=== PATIENT | male | born 1960 | race Caucasian/White ===

== ENCOUNTER 2025-07-07 07:15 | Emergency (ER) | payer OTHER, SELFPAY ==
--- OUTSIDE RECORDS SUMMARY | 2025-06-23 10:45 | XMS_ITS | Encounter Summary ---
Author Organization [facility] Address [address] [place] [address] Phone Care Team Providers Care Metal Grinder Name Role Phone Sonny Chiang DO Primary Care Provider Reason for Referral * Cardiovascular (Routine) - AuthorizedSpecialtyDiagnoses / ProceduresReferred By ContactReferred To Contact Diagnoses Bradycardia, unspecified Procedures ECG 12 Lead Ivan Martin MD [address] [facility] 2, [address] [address] Phone: tel: fax: Referral IDStatusReasonStart DateExpiration DateVisits RequestedVisits [id number]/24/202511/24/202611 Reason for Visit * ReasonCommentsekg visit * Cardiovascular (Routine) - AuthorizedSpecialtyDiagnoses / ProceduresReferred By ContactReferred To Contact Diagnoses Persistent atrial fibrillation (Multi) Procedures ECG 12 Lead Ivan Martin MD [address] [facility] 2, [address] [address] Phone: tel: fax: Referral IDStatusReasonStart DateExpiration DateVisits RequestedVisits [id number]/16/202510/16/202611 Encounter Details DateTypeDepartmentCare Team (Latest Contact Info)Smpemxvhjpe47/18/2025 10:45 AM ESTAncillary Procedure [facility] [address] [place] [address] Liz Abdi LPN Persistent atrial fibrillation (Multi); Bradycardia, unspecified Social History Tobacco UseTypesPacks/DayYears UsedDateSmoking Tobacco: FormerCigarettes1.517 Started: 1980Smokeless Tobacco: NeverAlcohol UseStandard Drinks/WeekCommentsYes0 (1 standard drink = 0.6 oz pure alcohol)occasionallySex and Gender Information ValueDate RecordedSex Assigned at BirthNot on fileLegal MxyCwoo88/25/2022 4:09 PM ESTGender IdentityNot on fileSexual OrientationNot on filedocumented as of this encounter Last Filed Vital Signs Vital SignReadingTime TakenCommentsBlood Aohfozhv417/8606/23/2025 10:52 AM EST Vxgtn435806/23/2025 10:52 AM ESTTemperature--Respiratory Rate--Oxygen Saturation-- Inhaled Oxygen Concentration--Pvfmni021 kg (285 lb)06/23/2025 10:52 AM ESTHeight 182.9 cm (6')06/23/2025 10:52 AM ESTBody Mass Index38.6506/23/2025 10:52 AM EST documented in this encounter Functional Status * BPAnswerDate of MqziwscgbeGlduzk257/8606/23/2025 10:52 AM Liz Douglas LPN * PulseAnswerDate of OgvtcnavpeYnpmlr5243/18/2025 10:52 AM Liz Douglas LPN documented as [...] 6 days ago Ivan Martin MD [place] [address] Card1 Clinical Mexican Food Cook Patient remained bradycardic. Discontinue sotalol. Repeat EKG [...] Plan of Treatment DateTypeDepartmentCare Team (Latest Contact Info)Hbxoiocuidr94/08/2025 2:00 PM ESTAncillary Procedure [facility] 703 [facility] 250 [place] [phone] 12/03/2025 10:40 AM EDTOJosh[place] [address] [facility] [address] [place] [address] Ivan Martin MD 703 [facility] 2, [address] [place] [address] NameTypePriorityAssociated DiagnosesOrder ScheduleECG 12 LeadECGRoutine [...] Date Sonny Chiang DO [address] [facility] [address] [place] [address] PCP - General10/03/21documented as of this encounter
[2025-07-07] VITALS (12 sets, daily range): BP systolic 136–186; BP diastolic 86–102; PULSE 66–85; TEMP 36.6; O2SAT 93–99; BMI 38.0
--- NOTE | 2025-07-07 07:32 | XR_ITS ---
[place] [id number] Patient Name: LUCIA ARREOLA MRN: [id number] date: 1960 Sex: M Assigned Patient Location: ER Current Patient Location: ED.MAIN Accession/Order Number: [id number] Exam Date: 07/07/2025 07:38 Report Date: 07/07/2025 08:18 At the request of: SANJAY WILLIS MD Procedure: XR chest 1V PORTABLE AP ERECT CHEST 0734 hours CLINICAL HISTORY: Hypertension and heart palpitations COMPARISON: 06/14/2022 There is continued slight elevation of the right hemidiaphragm. The heart is within normal limits. There is no vascular congestion. The lungs, as visualized, are clear. There is no effusion or pneumothorax. The osseous structures are intact. Endplate spurring is noted. XR/XR chest 1V IMPRESSION: NO ACUTE FINDINGS Impression dictated by: Lin Murcia M.D. 07/07/2025 8:18 AM Dictation Location: [place] [address] Electronically authenticated by: [id number] Y Date: 07/07/2025 08:18
--- NOTE | 2025-07-07 07:32 | ECG_ITS ---
[facility] Test Date: 2025-07-07 Pat Name: LUCIA ARREOLA Department: Room: - Gender: Male Executive Services Administrator: : 1960 Requested By: Order Number: [id number] Reading MD: VIVIAN HOPKINS Measurements Intervals Dilliner Rate: 77 P: 52 WV: 182 QRS: 40 QRSD: 96 T: 45 QT: 380 QTc: 412 Interpretive Statements 1100 Sinus rhythm 2440 Incomplete right bundle branch block 9130 borderline ECG Compared to ECG 07/11/2022 07:53:33 Incomplete right bundle-branch block now present Electronically Signed On 07-07-2025 12:50:38 EST by VIVIAN HOPKINS
--- NOTE | 2025-07-07 07:33 | ED_ITS ---
HPI HPI - General Adult General Chief complaint: Recheck/Abnormal Lab/Rx Stated complaint: HEART PALPITATIONS Time Seen by Provider: 07/07/25 07:25 Source: patient Mode of arrival: walk-in Limitations: no limitations History of Present Illness HPI narrative: 65-year-old male presented for high blood pressure. He was seen by his gauge controller 8 days ago and was taken off of sotalol because his heart rate was low. He states his blood pressure has gone up. He does not have a headache or chest pain, he has been checking it at home. No shortness of breath or complaints of palpitations. He reports a history of A-fib but has not been in atrial fibrillation since he was placed on Cardizem and sotalol. Related Data Home Medications ?Medication ?Instructions ?Recorded ?Confirmed aspirin 81 mg chewable tablet 1 tab PO DAILY 07/07/25 07/07/25 diltiazem HCl 120 mg 120 mg PO Q24H 07/07/2509/30 capsule,extended release 24 hr hydrochlorothiazide 25 mg tablet 25 mg PO DAILY 07/07/25 Allergies Allergy/AdvReac Type Severity Reaction Status Date / Time lisinopril Allergy Severe tongue Verified 07/07/25 07:21 swelling cephalexin (From Keflex) Allergy Intermediate edema Verified 07/07/25 07:21 Penicillins Allergy Intermediate unknown Verified 07/07/25 07:21 Review of Systems ROS Narrative A ten point review of systems is negative except as noted above. PFSH PFSH Social History Little interest or pleasure in doing things: not at all Feeling down, depressed, or hopeless: not at all Exam Narrative Exam Narrative: Nurses note and vital signs reviewed General:The patient appears well and in no apparent distress.Patient is resting comfortably on cart. Skin:Warm, dry, no pallor noted.There is no rash noted. Head:Normocephalic, atraumatic Eye: Normal conjunctiva, no drainage Ears, Nose, Mouth, and Throat: oral mucosa is moist. Nares patent. Cardiovascular:Regular Rate and Rhythm Respiratory:Patient is in no distress, no accessory muscle use, lungs are clear to auscultation, no wheezing, rales or rhonchi Back:non-tender GI: Soft and nontender Musculoskeletal: The patient has no evidence of calf tenderness Neurological:A&O, normal speech Psychiatric:Cooperative Constitutional Vital Signs, click to edit/add: Last Vital Signs Temp 97.9 F 07/07/25 07:22 Pulse 66 07/07/25 08:20 Resp 13 07/07/25 08:20 BP 149/88 H 07/07/25 08:15 Pulse Ox 95 07/07/25 08:20 O2 Del Method Room Air 07/07/25 07:22 Course Vital Signs Vital signs: Vital Signs Pulse Rate 70 07/07/25 07:21 Respiratory Rate 12 07/07/25 07:21 Temperature 97.9 F 07/07/25 07:22 Pulse Rate 66 07/07/25 08:20 Respiratory Rate 13 07/07/25 08:20 Blood Pressure 149/88 H 07/07/25 08:15 Pulse Oximetry 95 07/07/25 08:20 Oxygen Delivery Method Room Air 07/07/25 07:22 Medical Decision Making MDM Narrative Medical decision making narrative: The patient presented with an elevated blood pressure but it has come down steadily without any intervention. His workup is negative as well and he is discharged home. He will close cardiac just office when they are open. Treatment diagnosis and follow-up were discussed with the patient and his . Differential Diagnosis Differential Diagnosis: Hypertension, kidney failure Lab Data Lab results reviewed: Yes I reviewed the patient's lab results Labs: Lab Results 07/07/25 Range/Units 07:34 WBC 5.8 (4.0-11.0) 10^3/uL RBC 5.56 (4.70-6.10) 10^6/uL Hgb 16.3 (14.0-18.0) g/dL Hct 48.2 (42.0-54.0) % MCV 86.7 (80.0-94.0) fL MCH 29.3 (25.9-34.0) pg MCHC 33.8 (29.9-35.2) g/dL RDW 12.9 (11.0-15.0) % Plt Count 186 (150-450) 10^3/uL MPV 9.9 (9.5-13.5) fL Neut % (Auto) 57.3 (43.0-75.0) % Lymph % (Auto) 27.6 (20.5-60.0) % [place] % (Auto) 9.7 (1.7-12.0) % Eos % (Auto) 3.8 (0.9-7.0) % Baso % (Auto) 1.4 (0.2-2.0) % Neut # (Auto) 3.3 (1.4-6.5) 10^3/uL Lymph # (Auto) 1.6 (1.2-3.8) 10^3/uL [place] # (Auto) 0.6 (0.3-0.8) 10^3/uL Eos # (Auto) 0.2 (0.0-0.7) 10^3/uL Baso # (Auto) 0.1 (0.0-0.1) 10^3/uL Abs Immat Gran (auto) 0.01 (0.00-0.03) 10^3/uL Imm/Tot Granulo (auto) 0.2 (0.0-0.5) % Sodium 140 (136-145) mmol/L Potassium 3.9 (3.5-5.1) mmol/L Chloride 102 (98-107) mmol/L Carbon Dioxide 26.6 (21.0-32.0) mmol/L Anion Gap 15.3 BUN 18.0 (7.0-18.0) mg/dL Creatinine 0.95 (0.70-1.30) mg/dL Est GFR ( Amer) >60 (>=60 mL/min/1.73m^2) Est GFR (Non-Af Amer) >60 (>=60 mL/min/1.73m^2) BUN/Creatinine Ratio 18.9 Glucose 167 H (74-106) mg/dL Calcium 9.5 (8.5-10.1) mg/dL Troponin I High Sens 8.9 (4.0-76.1) pg/mL Imaging Data Chest x-ray: Radiologist's impression: ITS Impressions Chest X-Ray 07/07/25 07:32 IMPRESSION: NO ACUTE FINDINGS Impression dictated by: Lin Murcia M.D. 07/07/2025 8:18 AM Dictation Location: [place] [address] Electronically authenticated by: [id number] Y Date: 07/07/2025 08:18 ECG Data Attestation: I personally reviewed and interpreted this ECG as follows: (EKG on my interpretation shows sinus rhythm with rate of 77 and no acute change) Discharge Plan Discharge Chief Complaint: Recheck/Abnormal Lab/Rx Clinical Impression: Hypertension Patient Disposition: Home, Self-Care Time of Disposition Decision: 08:28 Condition: Good Mode of Transportation: Private Vehicle Prescriptions / Home Meds: No Action aspirin 81 mg tablet,chewable 1 tab PO DAILY diltiazem HCl 120 mg capsule,extended release 24hr 120 mg PO Q24H hydrochlorothiazide 25 mg tablet 25 mg PO DAILY Print Language: Swedish Instructions: Chronic Hypertension (ED) Additional Instructions: Call your gauge controller's office when they are open. Referrals: YO MATTHEWS [Primary Care Provider] - 1 week
[2025-07-07 07:46] LABS: Hematocrit 48.2 % (42.0-54.0); Hemoglobin 16.3 g/dL (14.0-18.0); Immature Granulocytes Abs Auto 0.01 10^3/uL (0.00-0.03); Immature Granulocytes Pct Auto 0.2 % (0.0-0.5); Lymphocytes Absolute Auto 1.6 10^3/uL (1.2-3.8); Mean Corpuscular HGB Conc 33.8 g/dL (29.9-35.2); Mean Corpuscular Hemoglobin 29.3 pg (25.9-34.0); Mean Corpuscular Volume 86.7 fL (80.0-94.0); Platelet Count 186 10^3/uL (150-450); Red Blood Count 5.56 10^6/uL (4.70-6.10); White Blood Count 5.8 10^3/uL (4.0-11.0)
[2025-07-07 07:53] LABS: Anion Gap 15.3; Blood Urea Nitrogen 18.0 mg/dL (7.0-18.0); Calcium 9.5 mg/dL (8.5-10.1); Carbon Dioxide 26.6 mmol/L (21.0-32.0); Chloride 102 mmol/L (98-107); Estimated GFR (African America >60 (>=60 mL/min/1.73m^2); Estimated GFR (Non-African Ame >60 (>=60 mL/min/1.73m^2); Glucose 167 mg/dL (74-106); Potassium 3.9 mmol/L (3.5-5.1); Sodium 140 mmol/L (136-145)
--- OUTSIDE RECORDS SUMMARY | 2025-07-07 08:07 | XMS_ITS | Encounter Summary ---
Author Organization [facility] Address [address] [place] [address] Phone Care Team Providers Care Traffic Control Officer Name Role Phone Sonny Chiang DO Primary Care Provider Encounter Details DateTypeDepartmentCare Team (Latest Contact Info)Nvlfrtvsfed97/18/2025Travel Social History Tobacco UseTypesPacks/DayYears UsedDateSmoking Tobacco: FormerCigarettes1.517 Started: 1980Smokeless Tobacco: NeverAlcohol UseStandard Drinks/WeekCommentsYes0 (1 standard drink = 0.6 oz pure alcohol)occasionallySex and Gender Information ValueDate RecordedSex Assigned at BirthNot on fileLegal PlwNjec49/25/2022 4:09 PM ESTGender IdentityNot on fileSexual OrientationNot on filedocumented as of this encounter Functional Status * BPAnswerDate of GtdiesmczbUihzcj525/8611 10:52 AM Liz Douglas LPN * PulseAnswerDate of DeuhghutizUnkqwt8881/18/2025 10:52 AM Liz Douglas LPN documented as of this encounter Plan of Treatment DateTypeDepartmentCare Team (Latest Contact Info)Wjhxcpoehfq17/08/2025 2:00 PM ESTAncillary Procedure [facility] 703 [facility] [address] [place] [address] 12/03/2025 10:[address] [place] [address] Ivan Martin MD 703 [facility] 2, [address] [place] [address] documented as of this encounter Visit Diagnoses Not on filedocumented in this encounter Care Teams Team MemberRelationshipSpecialtyStart DateEnd Date Sonny Chiang DO [address] [facility] [address] [place] [address] PCP - General10/03/21documented as of this encounter
--- OUTSIDE RECORDS SUMMARY | 2025-07-07 08:07 | XMS_ITS | Clinical Summary ---
Author Organization [facility] Address [address] [facility], [address] [place] [address] Care Team Providers Care Sales Force Administrator Name Role Phone Unavailable Primary Care Provider Unavailabl e Allergies Active AllergyReactionsCriticalityNoted HcyaMogvlkfkKboebrtwch15/01/2021 Rnasaswvoi83/01/4425Hkrdhpwtlrn16/01/2021 Medications MedicationSigDispense QuantityRefillsLast FilledStart DateEnd DateStatus aspirin 81 MG chewable tablet Take 81 mg by mouth dailyActive [place]-3 Fatty Acids (OMEGA 3 500 PO) Take by mouthActive hydroCHLOROthiazide (HYDRODIURIL) 12.5 MG tablet Take 12.5 mg by mouth dailyActive dilTIAZem (DILACOR XR) 240 MG extended release capsule Take 240 mg by mouth dailyActive Social History Tobacco UseTypesPacks/DayYears UsedDateSmoking Tobacco: FormerSmokeless Tobacco: NeverAlcohol UseStandard Drinks/WeekCommentsYes0 (1 standard drink = 0.6 oz pure alcohol)RareSex and Gender InformationValueDate RecordedSex Assigned at BirthNot on fileLegal SpwCnpp7509/15/2012 11:23 PM ESTGender IdentityNot on fileSexual OrientationNot on file Last Filed Vital Signs Vital SignReadingTime TakenCommentsBlood Ospmfxvr355/8907 10:30 PM EDT Gzfjv7429 10:30 PM QGIWyuyfqcelpk18.6 ??C (97.9 ??F)02/03/2021 8:08 PM EDTRespiratory Cqln3551 10:30 PM EDTOxygen Ccxhtrdjoy26%02/03/2021 10:30 PM EDTInhaled Oxygen Concentration--Sugbqy442.2 kg (265 lb)02/03/2021 8:06 PM CYWQcjery565.4 cm (6' 1 )02/03/2021 8:06 PM EDTBody Mass Index34.9602/03/2021 8:06 PM EDT Plan of Treatment Not on file Insurance [address] [place] [address]
--- OUTSIDE RECORDS SUMMARY | 2025-07-07 08:07 | XMS_ITS | Clinical Summary ---
Author Organization [facility] Address [id number] [place] [address] Care Team Providers Care Silvering Applicator Name Role Phone Sonny Chiang DO Primary Care Provider Allergies Active AllergyReactionsCriticalityNoted XmurLbcyaojvKzihawjjdy12/28/2017 NeoxvtugzbPkvvfgjrfn61/26/8857Uebkiryhkpz31/28/2017Sulfa (Sulfonamide Antibiotics)12/01/2016 Medications MedicationSigDispense QuantityRefillsLast FilledStart DateEnd DateStatus omega 5-wzc-akj-fish oil (FISH OIL) 1,000 mg (120 mg-180 mg) capsule Take by mouth.Active ibuprofen (ADVIL,MOTRIN) 200 mg tablet Take 200 mg by mouth every 8 (eight) hours as needed (pain).Active hydroCHLOROthiazide (HYDRODIURIL) 25 mg tablet Take 25 mg by mouth daily.Active dilTIAZem CD (CARDIZEM CD) 180 mg 24 hr capsule Take 180 mg by mouth daily.Active ezetimibe (ZETIA) 10 mg tablet Take 10 mg by mouth daily.Active sotaloL (BETAPACE) 120 mg tablet Take 120 mg by mouth 2 (two) times a day.Active omega-3/dha/epa/dpa/fish oil (OMEGA-3 2100 ORAL) Take by mouth.Active Active Problems Patient Care Coordination No te Formatting of this note migh t be different from the original. Holter 04/22, 05/21 ECHO 65% 8/24/17 ProblemNoted DateDiagnosed FvfyDfpskdzwbln94/16/3482Aqsurmmroomw38/16/2017 Arrhythmia, long term03/21/2017 Family History Medical HistoryRelationNameCommentsDiabetesOtherHypertensionOtherRelationName StatusCommentsFatherAliveMotherAliveOther Social History Tobacco UseTypesPacks/DayYears UsedDateSmoking Tobacco: FormerCigarettesQuit: 03/21/2008Smokeless Tobacco: NeverAlcohol UseStandard Drinks/WeekCommentsYes0 (1 standard drink = 0.6 oz pure alcohol)ChildcareAnswerDate RecordedChildcare Ssmvlik7901/15/2019EmploymentAnswerDate KqwkplhnMwnlrjeywhEniacon23/12/2019Purpose - LifeAnswerDate RecordedPurpose and direction in nlwgEdbmuih02/11/2021Sex and Gender InformationValueDate RecordedSex Assigned at BirthNot on fileLegal Sex Male03/11/2015 11:38 AM EDTGender IdentityNot on fileSexual OrientationNot on file Last Filed Vital Signs Vital SignReadingTime TakenCommentsBlood Nsrxfdgt523/9509 1:58 PM EDT Yezdu1341 1:58 PM IZPQnwaojdqjoc56.4 ??C (97.5 ??F)01/10/2022 1:10 PM EDTRespiratory Jafr5427 1:54 PM EDTOxygen Ctgbsfazgv22%04/18/2022 1:54 PM EDTInhaled Oxygen Concentration--Krweap770.2 kg (276 lb)04/18/2022 1:54 PM YXGRagrnz010.4 cm (6' 1 )04/18/2022 1:54 PM EDTBody Mass Index36.4109 1:54 PM EDT Plan of Treatment Health MaintenanceDue DateLast DoneCommentsDepression Thguvlueo08/14/1974Tobacco Snhqjcjsu75/14/1974Adult BMI Fykbtmfxb81/14/1980DTaP,Tdap and Td Vaccines (1 - Tdap)1981Zoster (Shingles) Vaccine (1 of 2)02/17/2012RSV ( or age 60+ yrs) (1 - Risk 60-74 years 1-dose series)2022Influenza Vaccine 04/06/2025 Medical Devices Not on file Insurance * Guarantor: Kamaljit Castanon TypeRelation to PatientDate of BirthPhone Billing AddressPersonal/MxeyazMnur1960 [facility] [place] [address] Care Teams Team MemberRelationshipSpecialtyStart DateEnd Date Sonny Chiang DO [facility] [place] [address] PCP - GeneralFamily Medicine08/11/21
--- OUTSIDE RECORDS SUMMARY | 2025-07-07 08:07 | XMS_ITS | Clinical Summary ---
Author Organization [facility] Address [address] [place] [address] Phone Care Team Providers Care Viscera Washer Name Role Phone Sonny Chiang DO Primary Care Provider Allergies Active AllergyReactionsCriticalityNoted DateCommentsAce InhibitorsPalpitations, PyhmduvsSsv82/03/4704RecqckgtfzRndeFdj76/03/0377KifphndgrifZzraaptMnb96/03/2023 Medications MedicationSigDispense QuantityRefillsLast FilledStart DateEnd DateStatus aspirin 81 mg EC tablet Take 1 tablet (81 mg) by mouth once daily.Active hydroCHLOROthiazide (Microzide) 12.5 mg tablet Indications:Benign essential hypertensionTake 1 tablet (12.5 mg) by mouth once daily. 90 tablet ctive fenofibrate (Tricor) 145 mg tablet Indications:Benign essential hypertensionTake 1 tablet (145 mg) by mouth early in the morning.. 90 tablet ctive hydroCHLOROthiazide (HYDRODiuril) 25 mg tablet 1 tablet (25 mg) once daily.5Active dilTIAZem CD (Cardizem CD) 120 mg 24 hr capsule Indications:Persistent atrial fibrillation (Multi),Benign essential hypertension Take 1 capsule (120 mg) by mouth once daily. 90 capsule ctive sotalol (Betapace) 80 mg tablet Indications:Persistent atrial fibrillation (Multi)Take 1 tablet (80 mg) by mouth every 12 hours. 180 tablet /Discontinued(Side effects) Active Problems ProblemNoted DateDiagnosed DateBMI 38.0-38.9,adult10/10/2024Persistent atrial lapsqvgsiyve14/07/2025Obstructive sleep apnea /07/2025Former cigarette ledxcr3211/21/2023enign essential /03/9688Rjtfsczkfozlan20/03/2023 Resolved Problems ProblemNoted DateDiagnosed DateResolved DateParoxysmal atrial fibrillation Sick sinus syndrome due to sinoatrial node dysfunction Encounters DateTypeDepartmentCare HqdaYovtktwpryj50/18/2025 10:45 AM ESTAncillary Procedure [facility] [address] [place] [address] Liz Abdi LPN Persistent atrial fibrillation (Multi); Bradycardia, uuaysetrgkx22/18/9759Gyawzq01/04/2025Telephone [address] [address] Generic Provider, No Assigned Pcp, 05/21/2025 10:10 AM EDTOffice Visit [facility] [address] [place] [address] Ivan Martin MD Persistent atrial fibrillation (Multi) (Primary Dx); Mixed hyperlipidemia; Benign essential hypertension; BMI 38.0-38.9,adult; Obstructive sleep apnea syndrome; Former cigarette smoker Discharge Disposition: Home05/21/20258195Uqpfan64/15/2025Scanned Document [facility] [address] [place] [phone] Scanning, Generic Provider from Last 3 Months Family History Medical HistoryRelationNameCommentsAtrial fibrillationBrotherColon cancerFather RelationNameStatusCommentsBrotherFather Social History Tobacco UseTypesPacks/DayYears UsedDateSmoking Tobacco: FormerCigarettes1.517 Started: 1980Smokeless Tobacco: Never Tobacco Cessation:Counseling Given: Not Answered Alcohol UseStandard Drinks/WeekCommentsYes0 (1 standard drink = 0.6 oz pure alcohol)occasionallySex and Gender InformationValueDate RecordedSex Assigned at BirthNot on fileLegal UfiRhwn70/25/2022 4:09 PM ESTGender IdentityNot on file Sexual OrientationNot on file Last Filed Vital Signs Vital SignReadingTime TakenCommentsBlood Cvfyduen493/8611 10:52 AM EST Lwcen590106/23/2025 10:52 AM ESTTemperature--Respiratory Rate--Oxygen Saturation-- Inhaled Oxygen Concentration--Hlcnyk490 kg (285 lb)06/23/2025 10:52 AM ESTHeight 182.9 cm (6')06/23/2025 10:52 AM ESTBody Mass Index38.6506/23/2025 10:52 AM EST Plan of Treatment DateTypeDepartmentCare Team (Latest Contact Info)Zxhkrokimil69/08/2025 2:00 PM ESTAncillary Procedure [facility] [address] [facility] [address] [place] [address] 12/03/2025 10:40 AM EDTOffice [place] [address] [place] [address] Ivan Martin MD [address] [facility] [address] [place] [address] 528- Health MaintenanceDue DateLast DoneCommentsCT Umbmrusfxzml1962Colonoscopy 1962FIT1962HIV Ziorndxos1962Lipid Panel1962igmoidoscopy 1962MMR Vaccines (1 of 1 - Standard series)1963Diabetes Screening 02/17/1980Hepatitis C Wablkmnxo46/14/1980DTaP/Tdap/Td Vaccines (1 - Tdap) 02/17/1984PSA Prostate Cancer Fgujsqgvs38/14/2012Pneumococcal Vaccine (1 of 1 - PCV)02/17/2012Zoster Vaccines (1 of 2)02/17/2012Yearly Adult Guppkkta51/19/2024 05/23/2023, 05/22/2022, 05/20/2021Influenza Vaccine (#1)2025OVID-19 Vaccine ( season)2025olorectal Cancer Toszxxofd52/28/2026FIT- DNA (Cologuard)RSV High Risk: (Elderly (60+) or Population) (1 - 1-dose 75+ series)2037HIB VaccinesAged OutNo longer eligible based on patient's age to complete this topicHPV VaccinesAged OutNo longer eligible based on patient's age to complete this topicHepatitis A VaccinesAged OutNo longer eligible based on patient's age to complete this topic Hepatitis B VaccinesAged OutNo longer eligible based on patient's age to complete this topicIPV VaccinesAged OutNo longer eligible based on patient's age to complete this topicMeningococcal VaccineAged OutNo longer eligible based on patient's age to complete this topicRotavirus VaccinesAged OutNo longer eligible based on patient's age to complete this topic Procedures Procedure NamePriorityDate/TimeAssociated DiagnosisCommentsECG 12-LEADRoutine 06/23/2025 10:30 AM EST Persistent atrial fibrillation (Multi) ECG 12-TVEWFfifgyu38/16/2025 10:10 AM EDT Persistent atrial fibrillation (Multi) from Last 3 Months Results * ECG 12 Lead (06/23/2025 10:30 AM EST) Only the most recent of2 resultswithin the time period is included. Specimen (Source)Anatomical Location / LateralityCollection Method / Volume Collection TimeReceived Time Narrative CPACS - 06/23/2025 12:27 PM EST Sinus bradycardia with heart rate of 48 Authorizing ProviderResult TypeResult StatusMourhaf Veronica LAIECG ORDERABLES Final ResultPerforming OrganizationAddressCity/State/ZIP CodePhone Number CPACS from Last 3 Months Insurance Care Teams Team MemberRelationshipSpecialtyStart DateEnd Date Sonny Chiang DO [address] [facility] Ur[facility] Care [address] [address] PCP - [facility]10/03/21
== END 2025-07-07 08:51 | disposition home or self-care (01) ==
PROVIDERS: Emergency Provider Emergency Medicine
DX: I10 Essential (primary) hypertension (principal)
CPT/HCPCS: 36415; 71045; 80048; 84484; 85025; 93005; 99285

== ENCOUNTER 2025-07-10 22:04 | Emergency (ER) | payer OTHER, SELFPAY ==
--- OUTSIDE RECORDS SUMMARY | 2025-06-23 10:45 | XMS_ITS | Encounter Summary ---
Author Organization [facility] Address [address] [place] [address] Phone Care Team Providers Care Academic Coordinator Name Role Phone Sonny Chiang DO Primary Care Provider Reason for Referral * Cardiovascular (Routine) - AuthorizedSpecialtyDiagnoses / ProceduresReferred By ContactReferred To Contact Diagnoses Bradycardia, unspecified Procedures ECG 12 Lead Ivan Martin MD [address] [facility] 2, [address] [address] Phone: tel: fax: Referral IDStatusReasonStart DateExpiration DateVisits RequestedVisits [id number]/24/202511/24/202611 Reason for Visit * ReasonCommentsekg visit * Cardiovascular (Routine) - AuthorizedSpecialtyDiagnoses / ProceduresReferred By ContactReferred To Contact Diagnoses Persistent atrial fibrillation (Multi) Procedures ECG 12 Lead Ivan Martin MD [address] [facility] 2, [address] [address] Phone: tel: fax: Referral IDStatusReasonStart DateExpiration DateVisits RequestedVisits [id number]/16/202510/16/202611 Encounter Details DateTypeDepartmentCare Team (Latest Contact Info)Wdwehwtbbxl46/18/2025 10:45 AM ESTAncillary Procedure [facility] [address] [place] [address] Liz Abdi LPN Persistent atrial fibrillation (Multi); Bradycardia, unspecified Social History Tobacco UseTypesPacks/DayYears UsedDateSmoking Tobacco: FormerCigarettes1.517 Started: 1980Smokeless Tobacco: NeverAlcohol UseStandard Drinks/WeekCommentsYes0 (1 standard drink = 0.6 oz pure alcohol)occasionallySex and Gender Information ValueDate RecordedSex Assigned at BirthNot on fileLegal WhbShhu62/25/2022 4:09 PM ESTGender IdentityNot on fileSexual OrientationNot on filedocumented as of this encounter Last Filed Vital Signs Vital SignReadingTime TakenCommentsBlood Ciottvzx721/8606/23/2025 10:52 AM EST Fblvc408106/23/2025 10:52 AM ESTTemperature--Respiratory Rate--Oxygen Saturation-- Inhaled Oxygen Concentration--Eoubvr642 kg (285 lb)06/23/2025 10:52 AM ESTHeight 182.9 cm (6')06/23/2025 10:52 AM ESTBody Mass Index38.6506/23/2025 10:52 AM EST documented in this encounter Functional Status * BPAnswerDate of PkwcwfhcywQsdmja263/8606/23/2025 10:52 AM Liz Douglas LPN * PulseAnswerDate of MyrqhajgytZbadkj0657/18/2025 10:52 AM Liz Douglas LPN documented as of this encounter Progress Notes * Liz Abdi LPN - 06/23/2025 10:45 AM EST Patient here for EKG visit ordered by Dr. Martin due to bradycardia. Dr. Gamez in suite to review EKG prior to discharge. Patient here due to decrease in Diltiazem to 120mg daily on 05/21/2025.Medication list Updated verbally. Denies cardiac complaints. To Dr. Martin to read. Vitals: 06/23/25 1052 BP: 138/86 BP Location: Left arm Patient Position: Sitting Pulse: (!) 48 Weight: 129 kg (285 lb) Height: 1.829 m (6') * Natacha Campbell LPN - 06/23/2025 10:45 AM EST Images from the original note were not included. Message Received: 6 days ago Ivan Martin MD [place] [address] Card[address] Clinical Butcher [place] Patient remained bradycardic. Discontinue sotalol. Repeat EKG in 2 weeks * Natacha Campbell LPN - 06/23/2025 10:45 AM EST Patient advised, verbalized understanding. TO SO Clerical documented in this encounter Miscellaneous Notes * Addendum Note - Natacha Campbell LPN - 06/23/2025 10:45 AM ESTAddended by: NATACHA CAMPBELL on: 06/29/2025 03:21 PM Modules accepted: Orders documented in this encounter Plan of Treatment DateTypeDepartmentCare Team (Latest Contact Info)Qxlfbycbspa70/08/2025 2:00 PM ESTAncillary Procedure [facility] 703 [facility] [address] [place] [id number] 12/03/2025 10:40 AM EDTOKim [place] [address] [facility] [address] [place] [address] Ivan Martin MD 703 [facility] 2, [address] [place] [address] NameTypePriorityAssociated DiagnosesOrder ScheduleECG 12 LeadECGRoutine Bradycardia, unspecified Expected: 07/13/2025 (Approximate), Expires: 06/29/2026documented as of this encounter Procedures Procedure NamePriorityDate/TimeAssociated DiagnosisCommentsECG 12-LEADRoutine 06/23/2025 10:30 AM EST Persistent atrial fibrillation (Multi) documented in this encounter Results * ECG 12 Lead (06/23/2025 10:30 AM EST)Specimen (Source)Anatomical Location / LateralityCollection Method / VolumeCollection TimeReceived Time Narrative CPACS - 06/23/2025 12:27 PM EST Sinus bradycardia with heart rate of 48 Authorizing ProviderResult TypeResult StatusMourhaf Veronica MDECG ORDERABLES Final ResultPerforming OrganizationAddressCity/State/ZIP CodePhone Number CPACS documented in this encounter Visit Diagnoses Diagnosis Persistent atrial fibrillation (Multi) Atrial fibrillation Bradycardia, unspecified documented in this encounter Care Teams Team MemberRelationshipSpecialtyStart DateEnd Date Sonny Chiang DO [address] [facility] [address] [place] [address] PCP - General10/03/21documented as of this encounter
[2025-07-10] VITALS (13 sets, daily range): BP systolic 133–180; BP diastolic 78–127; PULSE 83–122; TEMP 36.8; O2SAT 94–98; BMI 38.0
--- NOTE | 2025-07-10 22:10 | ECG_ITS ---
The [facility] Test Date: 2025-07-10 Pat Name: LUCIA ARREOLA Department: Room: - Gender: Male Manager Auto: : 1960 Requested By: [id number] Order Number: [id number] Reading MD: JANETH POPE M.D. Measurements Intervals [place] Rate: 121 P: -15509 DC: -11968 QRS: 70 QRSD: 102 T: 37 QT: 322 QTc: 394 Interpretive Statements 69013 Atrial fibrillation with rapid ventricular response [address] depression, probably digitalis effect [address] & Twave abnormality, probably digitalis effect 9150 abnormal ECG Compared to ECG 07/07/2025 07:21:49 ST (T wave) deviation now present Sinus rhythm no longer present Incomplete right bundle-branch block no longer present Electronically Signed On 07-11-2025 15:04:31 EST by JANETH POPE M.D.
--- NOTE | 2025-07-10 22:36 | ED.ARRPALP1 ---
HPI - Arrhythmia/Palpitations General Chief Complaint: Arrhythmia/Palpitations Stated Complaint: A FIB Time Seen by Provider: 07/10/25 22:14 Source: patient Mode of arrival: walk-in Limitations: no limitations History of Present Illness HPI narrative: past history of A. Fib. rate was controlled with diltiazem and sotalol. Seen by Cardiology 2 weeks ago and Sotalol was d/carissa due to bradycardia patient was asymptomatic tonight a sensation that his heart was racing again. Transient pain left neck area. No dizziness or dyspnea. Feels well now but can tell his heart is racing Related Data Home Medications ?Medication ?Instructions ?Recorded ?Confirmed aspirin 81 mg chewable tablet 1 tab PO DAILY 07/07/25 07/10/25 diltiazem HCl 120 mg 120 mg PO Q24H 07/07/25 07/10/25 capsule,extended release 24 hr hydrochlorothiazide 25 mg tablet 25 mg PO DAILY 07/07/25 07/10/25 hydralazine 50 mg tablet 25 mg PO BID 07/10/25 07/10/25 Allergies Allergy/AdvReac Type Severity Reaction Status Date / Time lisinopril Allergy Severe tongue Verified 07/10/25 22:20 swelling cephalexin (From Keflex) Allergy Intermediate edema Verified 07/10/25 22:20 Penicillins Allergy Intermediate unknown Verified 07/10/25 22:20 Review of Systems ROS Status of ROS 10 or more systems reviewed and unremarkable except as noted in history and below PFSH PFSH Social History Little interest or pleasure in doing things: not at all Feeling down, depressed, or hopeless: not at all Exam Constitutional Vital Signs, click to edit/add: Last Vital Signs Temp 98.2 F 07/10/25 22:15 Pulse 77 07/11/25 00:00 Resp 13 07/11/25 00:00 BP 133/78 07/10/25 23:31 Pulse Ox 97 07/11/25 00:00 Common normals: no apparent distress, average body habitus, oriented x3, no limitations, healthy appearing, alert and well nourished [facility] Common normals: normocephalic and head/scalp atraumatic Eye Common normals: EOMs intact bilaterally and conjunctivae normal Respiratory Common normals: normal respiratory effort, no retractions, no use of accessory muscles and clear to auscultation bilaterally Cardio Rate: tachycardic Rhythm: abnormal rhythm GI Common normals: Normal to inspection, nondistended, normoactive bowel sounds present, soft to palpation and non-tender Extremity Common normals: normal to inspection and full ROM Neuro Common normals: oriented x3, CN's II-XII intact bilaterally, moves all extremities and no focal motor deficits Psych Appearance: grossly normal Course Vital Signs Vital signs: Vital Signs Pulse Rate 122 H 07/10/25 22:11 Respiratory Rate 12 07/10/25 22:11 Blood Pressure 180/127 H 07/10/25 22:11 Temperature 98.2 F 07/10/25 22:15 Pulse Rate 77 07/11/25 00:00 Respiratory Rate 13 07/11/25 00:00 Blood Pressure 133/78 07/10/25 23:31 Pulse Oximetry 97 07/11/25 00:00 MDM - Arrhythmia/Palpitations MDM Narrative Medical decision making narrative: past history of A. Fib. Was on diltiazem and sotalol. Due to bradycardia Sotalol was d/carissa 2 weeks ago. Mehdi developed rapid beat in his chest and left sided transient neck pain. Presented to the ER asymptomatic in . [facility] with RVR 120s. Given one time dose of diltiazem 20mg IVP and heart rate decreased into the 80s. He would then go in and out of NSR to [facility]. Serial troponin neg. cxray clear. 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 Lab Data Labs: Lab Results 07/10/25 07/11/25 Range/Units 22:00 00:50 WBC 8.3 (4.0-11.0) 10^3/uL RBC 5.33 (4.70-6.10) 10^6/uL Hgb 16.1 (14.0-18.0) g/dL Hct 46.5 (42.0-54.0) % MCV 87.2 (80.0-94.0) fL MCH 30.2 (25.9-34.0) pg MCHC 34.6 (29.9-35.2) g/dL RDW 13.0 (11.0-15.0) % Plt Count 202 (150-450) 10^3/uL MPV 10.0 (9.5-13.5) fL Neut % (Auto) 53.1 (43.0-75.0) % Lymph % (Auto) 29.9 (20.5-60.0) % [place] % (Auto) 10.9 (1.7-12.0) % Eos % (Auto) 4.9 (0.9-7.0) % Baso % (Auto) 1.0 (0.2-2.0) % Neut # (Auto) 4.4 (1.4-6.5) 10^3/uL Lymph # (Auto) 2.5 (1.2-3.8) 10^3/uL [place] # (Auto) 0.9 H (0.3-0.8) 10^3/uL Eos # (Auto) 0.4 (0.0-0.7) 10^3/uL Baso # (Auto) 0.1 (0.0-0.1) 10^3/uL Abs Immat Gran (auto) 0.02 (0.00-0.03) 10^3/uL Imm/Tot Granulo (auto) 0.2 (0.0-0.5) % Sodium 142 (136-145) mmol/L Potassium 3.6 (3.5-5.1) mmol/L Chloride 103 (98-107) mmol/L Carbon Dioxide 27.2 (21.0-32.0) mmol/L Anion Gap 15.4 BUN 21.0 H (7.0-18.0) mg/dL Creatinine 0.98 (0.70-1.30) mg/dL Est GFR ( Amer) >60 (>=60 mL/min/1.73m^2) Est GFR (Non-Af Amer) >60 (>=60 mL/min/1.73m^2) BUN/Creatinine Ratio 21.4 Glucose 134 H (74-106) mg/dL Calcium 9.4 (8.5-10.1) mg/dL Troponin I High Sens 12.6 17.3 (4.0-76.1) pg/mL NT-Pro-B Natriuret Pep 24.0 (<=900.0) pg/mL Discharge Plan Discharge Chief Complaint: Arrhythmia/Palpitations Clinical Impression: Atrial fibrillation Patient Disposition: Home, Self-Care Prescriptions / Home Meds: No Action aspirin 81 mg tablet,chewable 1 tab PO DAILY diltiazem HCl 120 mg capsule,extended release 24hr 120 mg PO Q24H hydrochlorothiazide 25 mg tablet 25 mg PO DAILY hydralazine 50 mg tablet 25 mg PO BID Print Language: French Instructions: A-fib (Atrial Fibrillation) (ED) Additional Instructions: follow up with your barkeeper next week Referrals: YO MATTHEWS [Primary Care Provider] - 1 week
--- NOTE | 2025-07-10 22:38 | XR_ITS ---
The [address] [address] Patient Name: LUCIA ARREOLA MRN: [id number] date: 1960 Sex: M Assigned Patient Location: ED.MAIN Current Patient Location: ED.MAIN Accession/Order Number: [id number] Exam Date: 07/10/2025 22:46 Report Date: 07/10/2025 23:17 At the request of: ZEINA COSTELLO MD Procedure: XR chest 1V PA CHEST: CLINICAL HISTORY: tachycardia COMPARISON: 07/07/2025 Unremarkable cardiomediastinal silhouette. Lungs are clear. No effusion or pneumothorax. XR/XR chest 1V IMPRESSION: Negative acute pleural-parenchymal disease. Impression dictated by: George Gloria M.D. 07/10/2025 11:17 PM Dictation Location: [place] [address] Electronically authenticated by: [id number] Y Date: 07/10/2025 23:17
--- OUTSIDE RECORDS SUMMARY | 2025-07-10 22:39 | XMS_ITS | Clinical Summary ---
Author Organization [facility] Address [address] [facility] [facility], [address] [place] [address] Care Team Providers Care Hand Mexican Food Maker Name Role Phone Unavailable Primary Care Provider Unavailabl e Allergies Active AllergyReactionsCriticalityNoted ZhrrUwjnexcoNxfvtbutcf09/01/2021 Zowlcrdfgz20/01/4827Nsaucpqtcjx00/01/2021 Medications MedicationSigDispense QuantityRefillsLast FilledStart DateEnd DateStatus aspirin 81 MG chewable tablet Take 81 mg by mouth dailyActive [place]-3 Fatty Acids (OMEGA 3 500 PO) Take by mouthActive hydroCHLOROthiazide (HYDRODIURIL) 12.5 MG tablet Take 12.5 mg by mouth dailyActive dilTIAZem (DILACOR XR) 240 MG extended release capsule Take 240 mg by mouth dailyActive Social History Tobacco UseTypesPacks/DayYears UsedDateSmoking Tobacco: FormerSmokeless Tobacco: NeverAlcohol UseStandard Drinks/WeekCommentsYes0 (1 standard drink = 0.6 oz pure alcohol)RareSex and Gender InformationValueDate RecordedSex Assigned at BirthNot on fileLegal NynSwhw3109/15/2012 11:23 PM ESTGender IdentityNot on fileSexual OrientationNot on file Last Filed Vital Signs Vital SignReadingTime TakenCommentsBlood Wayvykvs598/8907 10:30 PM EDT Pfdcm7433 10:30 PM IAEVqhnzwkpgrr62.6 ??C (97.9 ??F)02/03/2021 8:08 PM EDTRespiratory Wlww2724 10:30 PM EDTOxygen Cjljueummz84%02/03/2021 10:30 PM EDTInhaled Oxygen Concentration--Bkijss155.2 kg (265 lb)02/03/2021 8:06 PM ZKKOvlvzd730.4 cm (6' 1 )02/03/2021 8:06 PM EDTBody Mass Index34.9602/03/2021 8:06 PM EDT Plan of Treatment Not on file Insurance [address] [place] [address]
--- OUTSIDE RECORDS SUMMARY | 2025-07-10 22:39 | XMS_ITS | Clinical Summary ---
Author Organization [facility] Address [facility]-[id number] [address] [place] [address] Care Team Providers Care Peoplesoft Hcm Developer Name Role Phone Sonny Chiang DO Primary Care Provider [phone] Allergies Active AllergyReactionsCriticalityNoted JixyFazcctbdAjmoeigetz50/28/2017 VozjyhaumcFxubckdujp27/26/4789Xwnlkaqzqcn54/28/2017Sulfa (Sulfonamide Antibiotics)12/01/2016 Medications MedicationSigDispense QuantityRefillsLast FilledStart DateEnd DateStatus omega 9-tww-gdi-fish oil (FISH OIL) 1,000 mg (120 mg-180 [...] 04/22, 05/21 ECHO 65% 8/24/17 ProblemNoted DateDiagnosed SgzhFcoyflzxnka55/16/5737Prudcogjidwi23/16/2017 Arrhythmia, long term03/21/2017 Family History Medical HistoryRelationNameCommentsDiabetesOtherHypertensionOtherRelationName StatusCommentsFatherAliveMotherAliveOther Social History Tobacco UseTypesPacks/DayYears UsedDateSmoking Tobacco: FormerCigarettesQuit: 03/21/2008Smokeless Tobacco: NeverAlcohol UseStandard Drinks/WeekCommentsYes0 (1 standard drink = 0.6 oz pure alcohol)ChildcareAnswerDate RecordedChildcare Qybjbwp6201/15/2019EmploymentAnswerDate BxmanejoApcpljerxuDmgzoce55/12/2019Purpose - LifeAnswerDate RecordedPurpose and direction in vxziBaipunl54/11/2021Sex and Gender InformationValueDate RecordedSex Assigned at BirthNot on fileLegal Sex Male03/11/2015 11:38 AM EDTGender IdentityNot on fileSexual OrientationNot on file Last Filed Vital Signs Vital SignReadingTime TakenCommentsBlood Sugrpdrs195/9509 1:58 PM EDT Ghgin3892 1:58 PM BDUClbkgcqrtkf41.4 ??C (97.5 ??F)01/10/2022 1:10 PM EDTRespiratory Pset9851 1:54 PM EDTOxygen Lrjvgyxmtb28%04/18/2022 1:54 PM EDTInhaled Oxygen Concentration--Iathlc234.2 kg (276 lb)04/18/2022 1:54 PM ZBUTipezi026.4 cm (6' 1 )04/18/2022 1:54 PM EDTBody Mass Index36.4109 1:54 PM EDT Plan of Treatment Health MaintenanceDue DateLast DoneCommentsDepression Pnvhwxuws35/14/1974Tobacco Clvrsngvg07/14/1974Adult BMI Ymoaeahxx70/14/1980DTaP,Tdap and Td Vaccines (1 - Tdap)1981Zoster (Shingles) Vaccine (1 of 2)02/17/2012RSV ( or age 60+ yrs) (1 - Risk 60-74 years 1-dose series)2022Influenza Vaccine 04/06/2025 Medical Devices Not on file Insurance * Guarantor: Kamaljit Castanon TypeRelation to PatientDate of BirthPhone Billing AddressPersonal/ExkhnaVfad1960 [facility] [place] [address] Care Teams Team MemberRelationshipSpecialtyStart DateEnd Date Sonny Chiang DO [facility] [place] [address] PCP - GeneralFamily Medicine08/11/21
--- OUTSIDE RECORDS SUMMARY | 2025-07-10 22:39 | XMS_ITS | Clinical Summary ---
Author Organization [facility] Address [address] [place] [address] Phone Care Team Providers Care Senior Office Support Assistant Sosa Name Role Phone Sonny Chiang DO Primary Care Provider Allergies Active AllergyReactionsCriticalityNoted DateCommentsAce InhibitorsPalpitations, PfgcwwhjWzx83/03/4022UaiazqxhsmEllbVuh17/03/5254CrydphvkbsbVekiqeqUmc29/03/2023 Medications MedicationSigDispense QuantityRefillsLast FilledStart DateEnd DateStatus aspirin 81 mg EC tablet Take 1 tablet (81 mg) by mouth once daily.Active hydroCHLOROthiazide (Microzide) 12.5 mg tablet Indications:Benign essential hypertensionTake 1 tablet (12.5 mg) by mouth once daily. 90 tablet 5010/10/2025ctive fenofibrate (Tricor) 145 mg tablet Indications:Benign essential hypertensionTake 1 tablet (145 mg) by mouth early in the morning.. 90 tablet 506Active hydroCHLOROthiazide (HYDRODiuril) 25 mg tablet 1 tablet (25 mg) once daily.5Active dilTIAZem CD (Cardizem CD) 120 mg 24 hr capsule Indications:Persistent atrial fibrillation (Multi),Benign essential hypertension Take 1 capsule (120 mg) by mouth once daily. 90 capsule /6Active hydrALAZINE (Apresoline) 25 mg tablet Indications:Benign essential hypertensionTake 1 tablet (25 mg) by mouth 2 times a day. 180 tablet 6Active sotalol (Betapace) 80 mg tablet Indications:Persistent atrial fibrillation (Multi)Take 1 tablet (80 mg) by mouth every 12 hours. 180 tablet Discontinued(Side effects) Active Problems ProblemNoted DateDiagnosed DateBMI 38.0-38.9,adult10/10/2024Persistent atrial wsflobogiznb84/07/2025Obstructive sleep apnea dqnrtyhi56/07/2025Former cigarette wxgszo1111/21/2023enign essential znorjjvrvlai27/03/1271Pdkxtugoittbdn85/03/2023 Resolved Problems ProblemNoted DateDiagnosed DateResolved DateParoxysmal atrial fibrillation /02/2025Sick sinus syndrome due to sinoatrial node dysfunction Encounters DateTypeDepartmentCare XzpgYqlgfuervuc92/02/2025Scanned Document [facility] [address] [place] [address] Scanning, Generic Provider 07/07/2025Telephone [address] [address] Natacha Hunt LPN 06/23/2025 10:45 AM ESTAncVeterans Affairs [facility] [address] [place] [address] Liz Abdi LPN Persistent atrial fibrillation (Multi); Bradycardia, eudzhhwzdcn64/18/8574Pkgqcr96/04/2025Telephone [address] [address] Generic Provider, No Assigned PcpMD 05/21/2025 10:10 AM [facility] [address] [place] [address] Ivan Martin MD Persistent atrial fibrillation (Multi) (Primary Dx); Mixed hyperlipidemia; Benign essential hypertension; BMI 38.0-38.9,adult; Obstructive sleep apnea syndrome; Former cigarette smoker Discharge Disposition: Home05/21/20258720Kndstb28/15/2025Scanned Document [facility] [address] [place] [address] Scanning, Generic Provider from Last 3 Months Family History Medical HistoryRelationNameCommentsAtrial fibrillationBrotherColon cancerFather RelationNameStatusCommentsBrotherFather Social History Tobacco UseTypesPacks/DayYears UsedDateSmoking Tobacco: FormerCigarettes1.517 Started: 1980Smokeless Tobacco: Never Tobacco Cessation:Counseling Given: Not Answered Alcohol UseStandard Drinks/WeekCommentsYes0 (1 standard drink = 0.6 oz pure alcohol)occasionallySex and Gender InformationValueDate RecordedSex Assigned at BirthNot on fileLegal WmtNthj86/25/2022 4:09 PM ESTGender IdentityNot on file Sexual OrientationNot on file Last Filed Vital Signs Vital SignReadingTime TakenCommentsBlood Lvsmwbpg432/8611 10:52 AM EST Niayl643306/23/2025 10:52 AM ESTTemperature--Respiratory Rate--Oxygen Saturation-- Inhaled Oxygen Concentration--Adqayw419 kg (285 lb)06/23/2025 10:52 AM ESTHeight 182.9 cm (6')06/23/2025 10:52 AM ESTBody Mass Index38.6506/23/2025 10:52 AM EST Plan of Treatment DateTypeDepartmentCare Team (Latest Contact Info)Hgdiibdrbgc57/08/2025 2:00 PM ESTAncillary Procedure [facility] [address] [facility] [address] [place] [address] 12/03/2025 10:40 AM EDTOffice Visit [place] [address] [place] [address] Ivan Martin MD [address] [facility] [address] [place] [address] Health MaintenanceDue DateLast DoneCommentsCT Cbmcbfcnmsdz1962Colonoscopy 1962FIT1962HIV Rkngqvkgv1962Lipid Panel1962Sigmoidoscopy 1962MMR Vaccines (1 of 1 - Standard series)1963Diabetes Screening 02/17/1980Hepatitis C Royrpudtz85/14/1980DTaP/Tdap/Td Vaccines (1 - Tdap) 02/17/1984PSA Prostate Cancer Aoklqbbjz45/14/2012Pneumococcal Vaccine (1 of 1 - PCV)02/17/2012Zoster Vaccines (1 of 2)02/17/2012Yearly Adult Lvkkisnr99/19/2024 05/23/2023, 05/22/2022, 05/20/2021Influenza Vaccine (#1)2025OVID-19 Vaccine (1 - season)2025olorectal Cancer Gyjoswnjk45/28/2026FIT- DNA (Cologuard)RSV High Risk: (Elderly (60+) or [...] AM EST Persistent atrial fibrillation (Multi) ECG 12-COEAHbdzkjs03/16/2025 10:10 AM EDT Persistent atrial fibrillation (Multi) [...] Number CPACS from Last 3 Months Insurance * Guarantor: Kamaljit Castanon TypeRelation to PatientDate of BirthPhone Billing AddressPersonal/LtclxkVvtw1960 [facility] [address] MemberSubscriberPlan / Payer (Effective 2023-Present)Name:Kamaljit Castanon Relation to Subscriber:SelfName:Kamaljit Castanon Payer ID:Not on file Type:Not on file Address: [address] [place] [phone] Care Teams Team MemberRelationshipSpecialtyStart DateEnd Date Sonny Chiang DO [address] [facility] - Urgent Care [facility] [address] [place] [address] PCP - General10/03/21
--- OUTSIDE RECORDS SUMMARY | 2025-07-10 22:39 | XMS_ITS | Encounter Summary ---
Author Organization [facility] Address [address] [place] [address] Phone Care Team Providers Care Lab Tester Name Role Phone Sonny Chiang DO Primary Care Provider Encounter Details DateTypeDepartmentCare Team (Latest Contact Info)Muodmnzyije85/02/2025Scanned Document [facility] [address] [place] [address] Scanning, Generic Provider Social History Tobacco UseTypesPacks/DayYears UsedDateSmoking Tobacco: FormerCigarettes1.517 Started: 1980Smokeless Tobacco: NeverAlcohol UseStandard Drinks/WeekCommentsYes0 (1 standard drink = 0.6 oz pure alcohol)occasionallySex and Gender Information ValueDate RecordedSex Assigned at BirthNot on fileLegal MpgCydf30/25/2022 4:09 PM ESTGender IdentityNot on fileSexual OrientationNot on filedocumented as of this encounter Plan of Treatment DateTypeDepartmentCare Team (Latest Contact Info)Awaxpeezhjp30/08/2025 2:00 PM ESTAncillary Procedure [facility] [address] [facility] [address] [place] [address] 12/03/2025 10:40 AM EDTOffice Visit [place] [address] [place] [address] Ivan Martin MD [address] [facility] [address] [place] [address] documented as of this encounter Visit Diagnoses Not on filedocumented in this encounter Care Teams Team MemberRelationshipSpecialtyStart DateEnd Date Sonny Chiang DO [address] [facility] [place] [id number] PCP - General10/03/21documented as of this encounter
--- OUTSIDE RECORDS SUMMARY | 2025-07-10 22:39 | XMS_ITS | Encounter Summary ---
Author Organization [facility] Address [address] [place] [address] Phone Care Team Providers Care Commercial Roofer Name Role Phone Sonny Chiang DO Primary Care Provider Encounter Details DateTypeDepartmentCare Team (Latest Contact Info)Toerrmwvsdp73/02/2025Telephone [facility] [address] [address] Natacha Hunt, MANAGER WOUND Social History Tobacco UseTypesPacks/DayYears UsedDateSmoking Tobacco: FormerCigarettes1.517 Started: 1980Smokeless Tobacco: NeverAlcohol UseStandard Drinks/WeekCommentsYes0 (1 standard drink = 0.6 oz pure alcohol)occasionallySex and Gender Information ValueDate RecordedSex Assigned at BirthNot on fileLegal QfqHsww35/25/2022 4:09 PM ESTGender IdentityNot on fileSexual OrientationNot on filedocumented as of this encounter Miscellaneous Notes * Addendum Note - Sonja Finley RN - 07/07/2025 12:52 PM ESTAddended by: SONJA FINLEY on: 07/07/2025 12:52 PM Modules accepted: Orders * Telephone Encounter - Sonja Finley RN - 07/07/2025 12:49 PM EST Spoke to patient. Instructed to initiate hydralazine 25mg BID. Verbalized understanding. RX sent Alvina GALLO. Patient will monitor blood pressure and report readings. * Telephone Encounter - Carmelina Escobar LPN - 07/07/2025 11:30 AM EST Chart reviewed. Allergy to tanesha noted. Inquired with patient the reaction and he states angioedema. To Dr. Ivan Martin MD to verify he is to still start ARB/Diovan. * Telephone Encounter - Viviana Huntley LPN - 07/07/2025 9:47 AM EST Phoned patient states he was at [place] [facility], for elevated BP and palpitations, SOB. BP ranging 180/106-144/88 while at ER. HR 80. No medication changes made at ER. Inquiring if further medication changes need to be done, currently scheduled for EKG on 07/13/25. Please advise. Records requested. To Dr. Ivan Martin MD for review. * Telephone Encounter - Natacha Hunt LPN - 07/07/2025 9:35 AM EST Patient left vm via the nurse line states was at the ER this monring and was advised to contact hiscardiologist right away for follow up when he was discharged home. No further details. Need information regarding what Er, why he was there and how he is feelings now. No answer, no machine, just rang. Try again documented in this encounter Plan of Treatment DateTypeDepartmentCare Team (Latest Contact Info)Trknoritqpe73/08/2025 2:00 PM ESTAncillary Procedure [place] [id number] [address] 12/03/2025 10:40 AM EDTOffice Visit [facility] [address] [place] [address] Ivan Martin MD [address] [facility] [address] [place] [address] documented as of this encounter Visit Diagnoses Diagnosis Benign essential hypertension- Primary Essential hypertension, benign documented in this encounter Care Teams Team MemberRelationshipSpecialtyStart DateEnd Date Sonny Chiang, [address] [facility] [address] [place] [address] PCP - General10/03/21documented as of this encounter
[2025-07-10] MEDS: DILTIAZEM HCL 25 MG/5 ML VIAL 20 MG IV (22:50)
[2025-07-10 22:56] LABS: Hematocrit 46.5 % (42.0-54.0); Hemoglobin 16.1 g/dL (14.0-18.0); Immature Granulocytes Abs Auto 0.02 10^3/uL (0.00-0.03); Immature Granulocytes Pct Auto 0.2 % (0.0-0.5); Lymphocytes Absolute Auto 2.5 10^3/uL (1.2-3.8); Mean Corpuscular HGB Conc 34.6 g/dL (29.9-35.2); Mean Corpuscular Hemoglobin 30.2 pg (25.9-34.0); Mean Corpuscular Volume 87.2 fL (80.0-94.0); Platelet Count 202 10^3/uL (150-450); Red Blood Count 5.33 10^6/uL (4.70-6.10); White Blood Count 8.3 10^3/uL (4.0-11.0)
[2025-07-10 23:19] LABS: Anion Gap 15.4; Blood Urea Nitrogen 21.0 mg/dL (7.0-18.0); Calcium 9.4 mg/dL (8.5-10.1); Carbon Dioxide 27.2 mmol/L (21.0-32.0); Chloride 103 mmol/L (98-107); Estimated GFR (African America >60 (>=60 mL/min/1.73m^2); Estimated GFR (Non-African Ame >60 (>=60 mL/min/1.73m^2); Glucose 134 mg/dL (74-106); NT Pro B Type Natriuretic Pept 24.0 pg/mL (<=900.0); Potassium 3.6 mmol/L (3.5-5.1); Sodium 142 mmol/L (136-145)
[2025-07-11] VITALS (16 sets, daily range): BP systolic 108–118; BP diastolic 74–83; PULSE 77–103; O2SAT 95–99
--- NOTE | 2025-07-11 01:32 | ECG_ITS ---
[facility] Test Date: 2025-07-11 Pat Name: LUCIA ARREOLA Department: Room: - Gender: Male Marketing Communication Manager: : 1960 Requested By: [id number] Order Number: [id number] Reading MD: JANETH POPE M.D. Measurements Intervals [place] Rate: 88 P: -29167 CT: -59209 QRS: 46 QRSD: 96 T: 53 QT: 382 QTc: 428 Interpretive Statements 1210 Atrial fibrillation 9140 abnormal rhythm ECG Compared to ECG 07/10/2025 22:11:33 ST (T wave) deviation no longer present Electronically Signed On 07-11-2025 15:05:55 EST by JANETH POPE M.D.
[2025-07-11] MEDS: APIXABAN 5 MG TABLET PO (01:54)
== END 2025-07-11 02:26 | disposition home or self-care (01) ==
PROVIDERS: Emergency Provider Internal Medicine
DX: I48.91 Unspecified atrial fibrillation (principal); Z79.899 Other long term (current) drug therapy
CPT/HCPCS: 36415; 71045; 80048; 83880; 84484; 85025; 93005; 96374; 99284; 99285